=== PATIENT | female | born 1985 | race Caucasian/White ===

== ENCOUNTER → 2019-05-13 | Outpatient (CLI) | payer OTHER ==
--- NOTE | 2019-05-14 13:44 | NM ---
EXAMINATION TYPE: NM thyroid image w uptake DATE OF EXAM: 05/14/2019 COMPARISON: Thyroid aspiration on the right of 03/12/2016. HISTORY: Thyroid nodule. TECHNIQUE: Thyroid iodine uptake is calculated and images performed after the oral administration of 276 uCi 1-123 Capsule. FINDINGS: There is focal uptake within the mid to upper pole of the right thyroid gland mildly suppre ssing the remainder of the gland. The 4 hour iodine uptake is calculated at 9.8% (normal range 8-14% ). The 24-hour iodine uptake is calculated at 24.3% (normal range 15-35%). IMPRESSION: Focal right mid to upper thyroid activity representing an autonomously functioning thyroi d nodule on the right appearing to be the same nodule as biopsied on the fine-needle aspiration of 03/12/2016. Correlate with any recent outside thyroid ultrasounds to assess for additional nodule. The pa tient is noted to be euthyroid.
== END | disposition home or self-care (01) ==
LOC: RADNMMAIN 09:51
PROVIDERS: ATTEND Family Medicine
DX: E04.1 Nontoxic single thyroid nodule (principal)
CPT/HCPCS: 78014; A9516

== ENCOUNTER 2023-09-01 13:54 | Emergency (ER) | payer OTHER ==
[2023-09-01 14:14] VITALS: RESP 18
[2023-09-01] MEDS ORDERED: METOCLOPRAMIDE 10 MG TAB PO STA (14:35)
[2023-09-01] MEDS ORDERED: ACETAMINOPHEN TAB 500 MG TAB PO STA (14:35)
[2023-09-01] MEDS ORDERED: diphenhydrAMINE 25 MG CAP PO STA (14:35)
[2023-09-01] MEDS ORDERED: dexAMETHasone 4 MG TAB PO STA (14:35)
--- NOTE | 2023-09-01 14:55 | ED ---
General Adult HPI - General Chief complaint: Headache Stated complaint: Fell off Horse,hit head Time Seen by Provider: 09/01/23 14:14 Source: patient, RN notes reviewed, old records reviewed Mode of arrival: ambulatory Limitations: no limitations - History of Present Illness Initial comments: Patient is a 38-year-old female who fell off a horse on Saturday. Since that time she has been having headache. States she is also having some neck pain. Denies any sensitivity to lights or sounds, numbness, weakness. Able to ambulate and function with since that time. Patient has had a persistent headache. Only attempted to treat it once with Naprosyn without much improvement. Presents for further evaluation at this time. Denies loss of consciousness when she landed on the ground. States she seemed to have suffered maybe mild whiplash when she landed on her back and shoulder and hip back or have a milligram. No other acute complaints. Is not on thinners. Was not wearing a helmet. Presents multiple days after the injury. - Related Data Home Medications Medication Instructions Recorded Confirmed Control Pills 1 tab PO DAILY 01/15/15 03/12/16 Cholecalciferol (Vitamin D3) 50,000 unit PO WEEKLY 03/07/16 03/12/16 [Vitamin D] buPROPion SR [Wellbutrin Sr] 150 mg PO BID 03/07/16 03/12/16 Allergies Allergy/AdvReac Type Severity Reaction Status Date / Time No Known Allergies Allergy Verified 09/01/23 14:03 Review of Systems ROS Statement: Those systems with pertinent positive or pertinent negative responses have been documented in the HPI. Review of Systems: CONST: Denies fever EYES: Denies blurry vision ENT: Denies nasal congestion C/V: Denies Chest pain RESP: Denies shortness of breath GI: Denies abdominal pain : Denies dysuria SKIN: Denies rash. MSK: Endorses neck pain NEURO: Endorses headache ROS Other: All systems not noted in ROS Statement are negative. Past Medical History Past Medical History: Thyroid Disorder Additional Past Medical History / Comment(s): kidney stones History of Any Multi-Drug Resistant Organisms: None Reported, MRSA Date of last positivie culture/infection: 2 yrs ago under right arm MDRO Source:: under right arm Past Surgical History: Orthopedic Surgery, Tonsillectomy Additional Past Surgical History / Comment(s): Patient's had a D&C and an arthroscopy of the right knee. Past Anesthesia/Blood Transfusion Reactions: No Reported Reaction Past Psychological History: ADD/ADHD, Anxiety Past Alcohol Use History: None Reported Past Drug Use History: None Reported - Past Family History Mother Family Medical History: No Reported History General Exam - General Exam Comments Initial Comments: General: Appears in no acute distress. HEAD: Normal with no signs of head trauma. Negative rodriguez sign. Negative raccoon eyes. EYES: PERRLA, EOMI, conjunctiva normal, no discharge. Pupils are 2-3 mm and equal bilaterally. ENT: Hearing grossly intact, normal oropharynx. RESPIRATORY: Clear breath sounds bilaterally. No wheezes, rales, or rhonchi. C/V: Regular rate and rhythm. S1 and S2 auscultated, peripheral pulses 2+ and intact throughout ABD: Abd is soft, nontender, nondistended EXT: Normal range of motion, no obvious deformity. No significant midline tenderness of the cervical, thoracic, lumbar spine. Patient does have left- sided paraspinal muscle tenderness of the cervical spine. Pelvis is stable. No extremity pain. SKIN: No rashes or lesions observed on exposed skin. NEURO: Alert and oriented x 4. Cranial nerves II-XII intact. No focal sensory or strength deficits. GCS of 15. NIH of 0. Ambulating without issue. Limitations: no limitations Course Vital Signs 09/01/23 14:03 Temperature 97.6 F Pulse Rate 82 Respiratory 18 Rate Blood Pressure 143/91 O2 Sat by Pulse 100 Oximetry Medical Decision Making - Medical Decision Making Was pt. sent in by a medical professional or institution (, PA, GROUP ACCOUNT DIRECTOR, urgent care, hospital, or long-term...) When possible be specific @ -No Did you speak to anyone other than the patient for history (EMS, parent, family, police, friend...)? What history was obtained from this source @ -No Did you review nursing and triage notes (agree or disagree)? Why? @ -I reviewed and agree with nursing and triage notes Were old charts reviewed (outside hosp., previous admission, EMS record, old EKG, old radiological studies, urgent care reports/EKG's, long-term records)? Report findings @ -Old charts reviewed Differential Diagnosis (chest pain, altered mental status, abdominal pain women, abdominal pain men, vaginal bleeding, weakness, fever, dyspnea, syncope, headache, dizziness, GI bleed, back pain, seizure, CVA, palpatations, mental health, musculoskeletal)? @ -Differential Musculoskeletal Muscular strain, contusion, ligament sprain, fracture, arthritis, septic arthritis, bursitis, cellulitis, muscle spasm, nerve compression, DVT, arterial occlusion, herpes zoster, electrolyte abnormality, tumor.... This is not meant to be in all inclusive list. Also includes possible intracranial injury, concussion. EKG interpreted by me (3pts min.). @ -None done X-rays interpreted by me (1pt min.). @ -None done CT interpreted by me (1pt min.). @ -CT brain, C-spine negative for any obvious injury or fracture. No acute intracranial process. U/S interpreted by me (1pt. min.). @ -None done What testing was considered but not performed or refused? (CT, X-rays, U/S, labs)? Why? @ -None What meds were considered but not given or refused? Why? @ -I offered IV migraine cocktail however patient declines. Will be given oral medication instead. Did you discuss the management of the patient with other professionals (professionals i.e. , PA, GROUP ACCOUNT DIRECTOR, lab, RT, psych nurse, manager social services, supervisor concrete stone fabricating, teacher, commercial loan collection officer, supervisor case loading)? Give summary @ -No Was smoking cessation discussed for >3mins.? @ -No Was critical care preformed (if so, how long)? @ -No Were there social determinants of health that impacted care today? How? (Homelessness, low income, unemployed, alcoholism, drug addiction, transportation, low edu. Level, literacy, decrease access to med. care, snf, rehab)? @ -No Was there de-escalation of care discussed even if they declined (Discuss DNR or withdrawal of care, Hospice)? DNR status @ -No What co-morbidities impacted this encounter? (DM, HTN, Smoking, COPD, CAD, Cancer, CVA, ARF, Chemo, Hep., AIDS, mental health diagnosis, sleep apnea, morbid obesity)? @ -None Was patient admitted / discharged? Hospital course, mention meds given and route, prescriptions, significant lab abnormalities, going to OR and other pertinent info. @ -Based on the patient's presentation and physical exam, fall off a horse a few days ago has been having persistent headaches and neck pain since. Presents for imaging. Declines IV access at this time and migraine cocktail medications. She'll be given oral medications for her headache and we will obtain CT of the brain and C-spine. No other obvious injuries. Exams are unremarkable other than pain in the lateral neck. Patient's agreement this plan. Vital signs within acceptable limits. CT imaging negative for any injury. After the patient. Discussion likely has a concussion. Patient is feeling improved. Strict return precautions discussed. She can use [id number] analgesic medications for headache.Discussed with patient that she should obtain a helmet when riding a horse. She expressed understanding and was in agreement with the plan. I instructed the patient to follow up with their PCP in the next 1-3 days. I explained that the patient should return to the emergency department if they experience any worsening symptoms. Strict return precautions were discussed with the patient. The patient expressed understanding of these instructions. I answered all questions that the patient had. The patient was discharged home in good condition with their prescriptions and follow up information. Undiagnosed new problem with uncertain prognosis? @ -No Drug Therapy requiring intensive monitoring for toxicity (Heparin, Nitro, Insulin, Cardizem)? @ -No Were any procedures done? @ -No Diagnosis/symptom? @ -Mild Head injury, concussion, fall off horse, headache Acute, or Chronic, or Acute on Chronic? @ -Acute Uncomplicated (without systemic symptoms) or Complicated (systemic symptoms)? @ -Complicated Side effects of treatment? @ -none Exacerbation, Progression, or Severe Exacerbation] @ -no Poses a threat to life or bodily function? @ -no Disposition Clinical Impression: Fall from horse, Concussion, Minor head trauma, Headache Disposition: HOME SELF-CARE Condition: Good Instructions (If sedation given, give patient instructions): Acute Headache (ED), Concussion (ED) Is patient prescribed a controlled substance at d/c from ED?: No Referrals: Renae Cristobal DO [Primary Care Provider] - 1-2 days Time of Disposition: 15:52
--- NOTE | 2023-09-01 15:37 | CT ---
EXAMINATION TYPE: CT brain cspine wo con CT DLP: 1238.3 mGycm, Automated exposure control for dose reduction was used. DATE OF EXAM: 09/01/2023 3:24 PM COMPARISON: None. CLINICAL INDICATION:Female, 38 years old with history of head pain, after trauma; Fell off horse x 3 days ago. Head and neck pain since. TECHNIQUE: Brain: Multiple axial CT images of the brain were obtained without IV contrast. Cspine: Axial CT images from the skull base to the inferior aspect of T2 we obtained without intraven ous contrast. Coronal and sagittal reformatted images were also reviewed. FINDINGS: Brain: Extra-axial spaces: No abnormal extra-axial fluid collections. Ventricular system: Within normal limits Cerebral parenchyma: No acute intraparenchymal hemorrhage or mass effect. The mercado-white junction is well differentiated. Cerebellum: Unremarkable. Mass effect: No evidence of midline shift. Intracranial vasculature: unremarkable Soft tissues: Within the vessels of the face, may represent phleboliths. Calvarium/osseous structures: No depressed skull fracture. Paranasal sinuses and mastoid air cells: Clear. Visualized orbits: Orbital contents are intact. Cervical spine: Fracture: None. Osseous structures: Unremarkable Vertebral alignment: Within normal limits. Spinal canal/Neural Foramina: No evidence of significant spinal canal narrowing. No evidence for sign ificant neural foraminal stenosis. Neck soft tissues: Prevertebral soft tissues are within normal limits. Other: The airway is patent. The lung apices are clear. IMPRESSION: CT brain- No acute intracranial process. CT cervical spine- No evidence of cervical spine fracture.
[2023-09-01 16:12] VITALS: BP 145/87; PULSE 65; TEMP 97.9
== END 2023-09-01 15:52 | disposition home or self-care (01) ==
LOC: EC 13:54
DX: S06.0X0A Concussion without loss of consciousness, initial encounter (principal); R51.9 Headache, unspecified; F41.9 Anxiety disorder, unspecified; R40.2410 Glasgow coma scale score 13-15, unspecified time; Z79.899 Other long term (current) drug therapy; V80.010A Animal-rider injured by fall from or being thrown from horse in noncollision accident, initial encounter; Y93.52 Activity, horseback riding
CPT/HCPCS: 99284; 72125; 70450; J8540

== ENCOUNTER 2024-05-07 04:36 | Observation (INO) | payer OTHER ==
[2024-05-07] MEDS: HYDROmorphone 1 MG/ML 1 ML SYRINGE IVP STA (05:36)
[2024-05-07] MEDS: ONDANSETRON 4 MG/2 ML VIAL IVP STA (05:43)
[2024-05-07] MEDS: SODIUM CHLORIDE 0.9% 1,000 ML IV STA (05:44)
[2024-05-07 05:57] LABS: Appearance,Urine Clear (Clear); Bilirubin,Urine Negative (Negative); Blood,Urine Negative (Negative); Color,Urine Dark Yellow; Glucose,Urine (UA) Negative (Negative); Hyaline Casts,Urine 3 /lpf (0-2); Ketones,Urine 1+ (Negative); Leukocyte Esterase,Urine Negative (Negative); Mucus,Urine Moderate /hpf; Nitrite,Urine Positive (Negative); PH, Urine 6.5 (5.0-8.0); Protein,Urine Trace (Negative); RBC,Urine 1 /hpf (0-5); Specific Gravity,Urine 1.022 (1.001-1.035); Squamous Epithelial Cell,Urine 1 /hpf (0-4); WBC,Urine 2 /hpf (0-5)
[2024-05-07] MEDS ORDERED: NALOXONE 0.4 MG/ML 1 ML VIAL IV PRN (05:59)
[2024-05-07] MEDS ORDERED: ONDANSETRON 4 MG/2 ML VIAL IVP PRN (05:59)
[2024-05-07] MEDS ORDERED: HYDROmorphone 1 MG/ML 1 ML SYRINGE IVP PRN (05:59)
--- NOTE | 2024-05-07 05:59 | ED ---
General Adult HPI - General Chief complaint: Urogenital Stated complaint: Urogenital Time Seen by Provider: 05/07/24 05:10 Source: patient, RN notes reviewed, old records reviewed Mode of arrival: ambulatory Limitations: no limitations - History of Present Illness Initial comments: Is a 39-year-old female who was transferred from [facility] over concern for intractable flank pain secondary to kidney stone on the left. CT imaging there found an obstructing ureteral lithiasis that is 4 mm in size causing moderate hydronephrosis. Quired multiple doses of pain medications at that facility. It is a stand-alone ER and patient was transferred here for admission for intractable pain. Workup at the outpatient facility otherwise unremarkable. No significant evidence of infection. Was transferred here for admission for pain control. test was negative at the other facility. Patient transferred here via private vehicle. I spoke with the patient, and states that her pain is still very severe. She will be given analgesia medications as well as IV fluids. Patient will be admitted. She was in agreement this plan. - Related Data Home Medications Medication Instructions Recorded Confirmed Control Pills 1 tab PO DAILY 01/15/15 03/12/16 Cholecalciferol (Vitamin D3) 50,000 unit PO WEEKLY 03/07/16 03/12/16 [Vitamin D] buPROPion SR [Wellbutrin Sr] 150 mg PO BID 03/07/16 03/12/16 Allergies Allergy/AdvReac Type Severity Reaction Status Date / Time No Known Allergies Allergy Verified 05/07/24 04:42 Review of Systems ROS Statement: Those systems with pertinent positive or pertinent negative responses have been documented in the HPI. Review of Systems: CONST: Denies fever EYES: Denies blurry vision ENT: Denies nasal congestion C/V: Denies Chest pain RESP: Denies shortness of breath GI: Endorses left flank pain : Denies dysuria SKIN: Denies rash. MSK: Denies joint pain. NEURO: Denies headache ROS Other: All systems not noted in ROS Statement are negative. Past Medical History Past Medical History: Thyroid Disorder Additional Past Medical History / Comment(s): kidney stones History of Any Multi-Drug Resistant Organisms: None Reported, MRSA Date of last positivie culture/infection: 2 yrs ago under right arm MDRO Source:: under right arm Past Surgical History: Orthopedic Surgery, Tonsillectomy Additional Past Surgical History / Comment(s): Patient's had a D&C and an arthroscopy of the right knee. Past Anesthesia/Blood Transfusion Reactions: No Reported Reaction Past Psychological History: ADD/ADHD, Anxiety Past Alcohol Use History: None Reported Past Drug Use History: None Reported - Past Family History Mother Family Medical History: No Reported History General Exam - General Exam Comments Initial Comments: General: Appears in moderate distress . HEAD: Normal with no signs of head trauma. EYES: PERRLA, EOMI, conjunctiva normal, no discharge. ENT: Hearing grossly intact, normal oropharynx. RESPIRATORY: Clear breath sounds bilaterally. No wheezes, rales, or rhonchi. C/V: Regular rate and rhythm. S1 and S2 auscultated, no edema, peripheral pulses 2+ and intact throughout ABD: Abdomen soft, nondistended. Tender palpation in the left flank. No guarding or rebound tenderness. No peritoneal signs. EXT: Normal range of motion, no obvious deformity SKIN: No rashes or lesions observed on exposed skin. NEURO: Alert and oriented x 4. Limitations: no limitations Course Vital Signs 05/07/24 04:40 Temperature 97.6 F Pulse Rate 66 Respiratory 22 Rate Blood Pressure 187/123 O2 Sat by Pulse 99 Oximetry Medical Decision Making - Medical Decision Making Was pt. sent in by a medical professional or institution (, PA, SCREEN PRINTING SUPERVISOR, urgent care, hospital, or penitentiary...) When possible be specific @ -Transferred from [facility] for admission for intractable pain secondary to left ureterolithiasis Did you speak to anyone other than the patient for history (EMS, parent, family, police, friend...)? What history was obtained from this source @ -No Did you review nursing and triage notes (agree or disagree)? Why? @ -I reviewed and agree with nursing and triage notes Were old charts reviewed (outside hosp., previous admission, EMS record, old EKG, old radiological studies, urgent care reports/EKG's, penitentiary records)? Report findings @ -Charts from [facility] reviewed showing no evidence of kidney stone infection. CT result did show 4 mm stone with moderate hydronephrosis on the left. Stone located at the UVJ. Differential Diagnosis (chest pain, altered mental status, abdominal pain women, abdominal pain men, vaginal bleeding, weakness, fever, dyspnea, syncope, headache, dizziness, GI bleed, back pain, seizure, CVA, palpatations, mental health, musculoskeletal)? @ -Intractable pain secondary to kidney stone, electrolyte abnormality, infected kidney stone. This list is not all inclusive. EKG interpreted by me (3pts min.). @ -None done X-rays interpreted by me (1pt min.). @ -None done CT interpreted by me (1pt min.). @ -None done U/S interpreted by me (1pt. min.). @ -None done What testing was considered but not performed or refused? (CT, X-rays, U/S, labs)? Why? @ -Considered CT imaging however patient received this at outside facility. What meds were considered but not given or refused? Why? @ -None Did you discuss the management of the patient with other professionals (professionals i.e. , PA, SCREEN PRINTING SUPERVISOR, lab, RT, psych nurse, elementary school social worker, technical fellow, teacher, transportation security officer, rn field case manager)? Give summary @ -Discussed with on-call Dr. Cain as he was in the department for urology. Would like patient admitted to medicine and he will follow along as a consulting service. Spoke with Dr. Castillo of [facility] the admitting team who accepted the admission. Was smoking cessation discussed for >3mins.? @ -No Was critical care preformed (if so, how long)? @ -No Were there social determinants of health that impacted care today? How? (Homelessness, low income, unemployed, alcoholism, drug addiction, transportation, low edu. Level, literacy, decrease access to med. care, alf, rehab)? @ -No Was there de-escalation of care discussed even if they declined (Discuss DNR or withdrawal of care, Hospice)? DNR status @ -No What co-morbidities impacted this encounter? (DM, HTN, Smoking, COPD, CAD, Cancer, CVA, ARF, Chemo, Hep., AIDS, mental health diagnosis, sleep apnea, morbid obesity)? @ -None Was patient admitted / discharged? Hospital course, mention meds given and route, prescriptions, significant lab abnormalities, going to OR and other pertinent info. @ -Patient presents as a transfer for intractable pain from a left-sided ureterolithiasis. Moderate hydronephrosis on out side CT. Patient will be started on IV fluids, given analgesia medications. Will repeat basic labs. Urology will be consulted. Patient will be admitted to medicine. Dr. Cain of urology was already in the department and requested medicine admission. Vital signs currently within acceptable limits. Patient be symptomatically treated with IV fluids and Dilaudid. I spoke with Dr. Castillo of [facility] who accepted the admission. Undiagnosed new problem with uncertain prognosis? @ -No Drug Therapy requiring intensive monitoring for toxicity (Heparin, Nitro, Insulin, Cardizem)? @ -No Were any procedures done? @ -No Diagnosis/symptom? @ -Intractable abdominal pain secondary to left-sided ureterolithiasis Acute, or Chronic, or Acute on Chronic? @ -Acute Uncomplicated (without systemic symptoms) or Complicated (systemic symptoms)? @ -Complicated Side effects of treatment? @ -No Exacerbation, Progression, or Severe Exacerbation? @ -No Poses a threat to life or bodily function? How? (Chest pain, [place], OR, pneumonia, PE, COPD, DKA, ARF, appy, cholecystitis, CVA, Diverticulitis, Homicidal, Suicidal, threat to staff... and all critical care pts) @ -Yes Disposition Clinical Impression: Intractable abdominal pain, Ureterolithiasis Disposition: ADMITTED IP TO THIS HOSP Condition: Stable Referrals: Renae Cristobal DO [Primary Care Provider] - 1-2 days Time of Disposition: 05:59
[2024-05-07 06:11] LABS: Basophils % (A) 0 %; Eosinophils # (A) 0.1 k/uL (0-0.7); Eosinophils % (A) 1 %; HCT 36.6 % (34.0-46.0); HGB 11.6 gm/dL (11.4-16.0); Lymphocytes % (A) 9 %; MCH 27.6 pg (25.0-35.0); MCHC 31.6 g/dL (31.0-37.0); MCV 87.2 fL (80.0-100.0); Mean Platelet Volume 7.3; Monocytes # (A) 0.5 k/uL (0-1.0); Monocytes % (A) 4 %; Neutrophils # (A) 9.9 k/uL (1.3-7.7); Neutrophils % (A) 86 %; Platelet Count 301 k/uL (150-450); RBC 4.19 m/uL (3.80-5.40); RDW 15.2 % (11.5-15.5); WBC 11.6 k/uL (3.8-10.6)
[2024-05-07 06:55] LABS: ALT 95 U/L (4-34); AST 149 U/L (14-36); African American GFR (CKD) >90 (>60 ml/min/1.73 sqM); Albumin 3.9 g/dL (3.5-5.0); Alkaline Phosphatase 94 U/L (38-126); Anion Gap 5 mmol/L; Blood Urea Nitrogen 9 mg/dL (7-17); Calcium 8.6 mg/dL (8.4-10.2); Carbon Dioxide 25 mmol/L (22-30); Chloride 107 mmol/L (98-107); Glucose 121 mg/dL (74-99); Non-African American GFR(CKD) >90 (>60 ml/min/1.73 sqM); Sodium 137 mmol/L (137-145); Total Bilirubin 0.6 mg/dL (0.2-1.3); Total Protein 6.2 g/dL (6.3-8.2)
[2024-05-07] MEDS: KETOROLAC 15 MG/ML 1 ML VIAL IVP STA (08:56)
--- NOTE | 2024-05-07 08:57 | P.HPIM ---
History of Present Illness Patient is a pleasant 39 years old female with past medical history of kidney stone Was transferred to this facility for flank pain Patient states that she has left flank pain for about 1 week and radiating to the left groin yesterday was more severe so she decided to come to emergency room Also yesterday she started having some dysuria. She denies any fever or chills She denies any other specific complaint diarrhea . No chest pain or dyspnea, Patient also denies weakness or dizziness or headache. She denies smoking alcohol or illicit drugs On admission she is afebrile, blood pressure slightly elevated 141/81 Records from the transferring hospital were reviewed which shows CT scan of the abdomen and pelvis without contrast report:4 mm left ureterovesical junction calculus with moderate left hydronephrosis and perinephric inflammation WBC was 13.1 thousand and urine hCG was negative Review of Systems Review of systems CONSTITUTIONAL: No fever, no malaise, no fatigue. HEENT: No recent visual problems or hearing problems. Denied any sore throat. CARDIOVASCULAR: No orthopnea, PND, no palpitations, no syncope. PULMONARY: No shortness of breath, no cough, no hemoptysis. GASTROINTESTINAL: No diarrhea, no nausea, no vomiting, no abdominal pain. Normoactive bowel sounds. NEUROLOGICAL: No headaches, no weakness, no numbness. HEMATOLOGICAL: Denies any bleeding or petechiae. GENITOURINARY: Denies any burning micturition, frequency, or urgency. MUSCULOSKELETAL/RHEUMATOLOGICAL: Denies any joint pain, swelling, or any muscle pain. ENDOCRINE: Denies any polyuria or polydipsia. Past Medical History Past Medical History: Thyroid Disorder Additional Past Medical History / Comment(s): kidney stones History of Any Multi-Drug Resistant Organisms: None Reported, MRSA Date of last positivie culture/infection: 2 yrs ago under right arm MDRO Source:: under right arm Past Surgical History: Orthopedic Surgery, Tonsillectomy Additional Past Surgical History / Comment(s): Patient's had a D&C and an arthroscopy of the right knee. Past Anesthesia/Blood Transfusion Reactions: No Reported Reaction Past Psychological History: ADD/ADHD, Anxiety Past Alcohol Use History: None Reported Past Drug Use History: None Reported - Past Family History Mother Family Medical History: No Reported History Medications and Allergies Home Medications Medication Instructions Recorded Confirmed Type Control Pills 1 tab PO DAILY 01/15/15 03/12/16 History Cholecalciferol (Vitamin D3) 50,000 unit PO WEEKLY 03/07/16 03/12/16 History [Vitamin D] buPROPion SR [Wellbutrin Sr] 150 mg PO BID 03/07/16 03/12/16 History Allergies Allergy/AdvReac Type Severity Reaction Status Date / Time No Known Allergies Allergy Verified 05/07/24 04:42 Physical Exam Vitals: Vital Signs Temp Pulse Resp BP Pulse Ox 05/07/24 05:50 81 16 141/81 98 05/07/24 04:40 97.6 F 66 22 187/123 99 Intake and Output 05/06/24 05/07/24 05/07/24 22:59 06:59 14:59 Other: Weight 63.503 kg GENERAL: The patient is alert and oriented x3, not in any acute distress. Well developed, well nourished. HEENT: Pupils are round and equally reacting to light. EOMI. No scleral icterus. No conjunctival pallor. Normocephalic, atraumatic. No pharyngeal erythema. No thyromegaly. CARDIOVASCULAR: S1 and S2 present. No murmurs, rubs, or gallops. PULMONARY: Chest is clear to auscultation, no wheezing , no crackles. ABDOMEN: Soft, nontender, nondistended, normoactive bowel sounds. No palpable organomegaly. MUSCULOSKELETAL: No joint swelling or deformity. EXTREMITIES: No cyanosis, clubbing, or pedal edema. NEUROLOGICAL: Gross neurological examination did not reveal any focal deficits. SKIN: No rashes. no petechiae. Results CBC & Chem 7: 05/07/24 05:40 05/07/24 05:40 Labs: Abnormal Lab Results - Last 24 Hours (Table) 05/07/24 05/07/24 05/07/24 Range/Units 05:20 05:40 05:40 WBC 11.6 H (3.8-10.6) k/uL Neutrophils # 9.9 H (1.3-7.7) k/uL Glucose 121 H (74-99) mg/dL AST 149 H (14-36) U/L ALT 95 H (4-34) U/L Total Protein 6.2 L (6.3-8.2) g/dL Urine Protein Trace H (Negative) Urine Ketones 1+ H (Negative) Urine Nitrite Positive H (Negative) Hyaline Casts 3 H (0-2) /lpf Urine Mucus Moderate H (None) /hpf Assessment and Plan Assessment: Renal colic secondary to 4 mm left ureterovesical stone with moderate left hydronephrosis and perinephric inflammation Acute urinary tract infection is suspected Plan: Continue with pain management currently on Toradol Abnormal saline Start ceftriaxone send urine culture Urology consult Labs and medication were reviewed.. Continue same treatment. Continue with symptomatic treatment. Resume home medication. Monitor labs and vitals. DVT and GI prophylaxis. Further recommendations as per clinical course of the patient DVT prophylaxis: Subcutaneous heparin GI Prophylaxis: Pepcid Prognosis is guarded
--- NOTE | 2024-05-07 10:58 | P.GSCN ---
History of Present Illness Consult date: 05/07/24 History of present illness: 39 yo female with a history of stones. She has had left flank pain for a week. She ended up in the er and was transferred to [facility] for further evaluation and pain control She had a ct scan identifying a 4 mm left uvj stone explaining her urinary symptoms. Her wbc were 11k and her urine doesnot look infected. Her pain has been controlled.She thinks she has passed stones before. She has never seen a urologist Review of Systems All systems: negative - Constitutional Denies fever, Denies weight loss - EENT Eyes: denies blurred vision Ears, nose, mouth and throat: Denies dysphagia - Cardiovascular Denies chest pain, Denies shortness of breath - Respiratory Denies cough, Denies 7 - Gastrointestinal Reports as per HPI - Genitourinary Genitourinary: Denies dysuria, Denies hematuria - Integumentary Denies rash, Denies unusual bruising - Neurological Denies headaches, Denies syncope - Hematologic/Lymphatic Denies easy bleeding, Denies easy bruising Past Medical History Past Medical History: Thyroid Disorder Additional Past Medical History / Comment(s): kidney stones History of Any Multi-Drug Resistant Organisms: None Reported, MRSA Year Discovered:: 2 yrs ago under right arm MDRO Source:: under right arm Past Surgical History: Orthopedic Surgery, Tonsillectomy Additional Past Surgical History / Comment(s): Patient's had a D&C and an arthroscopy of the right knee. Past Anesthesia/Blood Transfusion Reactions: No Reported Reaction Past Psychological History: ADD/ADHD, Anxiety Past Alcohol Use History: None Reported Past Drug Use History: None Reported - Past Family History Mother Family Medical History: No Reported History Medications and Allergies Home Medications Medication Instructions Recorded Confirmed Type L.acidoph,Paracasei, B.lactis 1 cap PO DAILY 05/07/24 05/07/24 History [Probiotic] Lisdexamfetamine Dimesylate 60 mg PO DAILY 05/07/24 05/07/24 History [Vyvanse] Sertraline [Zoloft] 200 mg PO HS 05/07/24 05/07/24 History Allergies Allergy/AdvReac Type Severity Reaction Status Date / Time No Known Allergies Allergy Verified 05/07/24 10:11 Surgical - Exam Vital Signs Temp Pulse Resp BP Pulse Ox 97.6 F 66 22 187/123 99 05/07/24 04:40 05/07/24 04:40 05/07/24 04:40 05/07/24 04:40 05/07/24 04:40 Results - Labs 05/07/24 05:40 05/07/24 05:40 Abnormal Lab Results - Last 24 Hours (Table) 05/07/24 05/07/24 05/07/24 Range/Units 05:20 05:40 05:40 WBC 11.6 H (3.8-10.6) k/uL Neutrophils # 9.9 H (1.3-7.7) k/uL Glucose 121 H (74-99) mg/dL AST 149 H (14-36) U/L ALT 95 H (4-34) U/L Total Protein 6.2 L (6.3-8.2) g/dL Urine Protein Trace H (Negative) Urine Ketones 1+ H (Negative) Urine Nitrite Positive H (Negative) Hyaline Casts 3 H (0-2) /lpf Urine Mucus Moderate H (None) /hpf Diabetes panel 05/07/24 Range/Units 05:40 Sodium 137 (137-145) mmol/L Potassium 4.0 (3.5-5.1) mmol/L Chloride 107 (98-107) mmol/L Carbon Dioxide 25 (22-30) mmol/L BUN 9 (7-17) mg/dL Creatinine 0.65 (0.52-1.04) mg/dL Glucose 121 H (74-99) mg/dL Calcium 8.6 (8.4-10.2) mg/dL AST 149 H (14-36) U/L ALT 95 H (4-34) U/L Alkaline Phosphatase 94 (38-126) U/L Total Protein 6.2 L (6.3-8.2) g/dL Albumin 3.9 (3.5-5.0) g/dL Calcium panel 05/07/24 Range/Units 05:40 Calcium 8.6 (8.4-10.2) mg/dL Albumin 3.9 (3.5-5.0) g/dL Pituitary panel 05/07/24 Range/Units 05:40 Sodium 137 (137-145) mmol/L Potassium 4.0 (3.5-5.1) mmol/L Chloride 107 (98-107) mmol/L Carbon Dioxide 25 (22-30) mmol/L BUN 9 (7-17) mg/dL Creatinine 0.65 (0.52-1.04) mg/dL Glucose 121 H (74-99) mg/dL Calcium 8.6 (8.4-10.2) mg/dL Adrenal panel 05/07/24 Range/Units 05:40 Sodium 137 (137-145) mmol/L Potassium 4.0 (3.5-5.1) mmol/L Chloride 107 (98-107) mmol/L Carbon Dioxide 25 (22-30) mmol/L BUN 9 (7-17) mg/dL Creatinine 0.65 (0.52-1.04) mg/dL Glucose 121 H (74-99) mg/dL Calcium 8.6 (8.4-10.2) mg/dL Total Bilirubin 0.6 (0.2-1.3) mg/dL AST 149 H (14-36) U/L ALT 95 H (4-34) U/L Alkaline Phosphatase 94 (38-126) U/L Total Protein 6.2 L (6.3-8.2) g/dL Albumin 3.9 (3.5-5.0) g/dL - Imaging CT scan - abdomen: report reviewed CT scan - pelvis: report reviewed Assessment and Plan Assessment: Impression: Left ureteral stone with colic Recommendations:The patient has been given the option of spontaneous passage versus manipulation. She wants to see how today goes before makin a final decision
[2024-05-07] MEDS: KETOROLAC 15 MG/ML 1 ML VIAL IVP PRN (18:38)
[2024-05-07] MEDS: SERTRALINE 100 MG TAB PO SCH (20:19)
--- NOTE | 2024-05-08 07:16 | P.PN ---
Subjective Progress Note Date: 05/08/24 the patient is in the hospital with a left ureteral calculus with colic.stone is near the bladder. She has had no pain in the last 24 hours since I saw her in the emergency room. Objective - Vital Signs Vital signs: Vital Signs Temp 98.2 F 05/08/24 02:00 Pulse 62 05/08/24 02:00 Resp 16 05/08/24 02:00 BP 134/81 05/08/24 02:00 Pulse Ox 98 05/08/24 02:00 FiO2 Intake & Output 05/07/24 05/08/24 05/08/24 18:59 06:59 18:59 Weight 63.503 kg Other: Voiding Method Toilet # Voids 3 - Labs CBC & Chem 7: 05/07/24 05:40 05/07/24 05:40 Assessment and Plan Assessment: impression: Left ureteral calculus with colic. Recommendations. The patient's pain has disappeared. She's given options of urologic intervention versus spontaneous passage. Should still like to try to pass this at possible. He can be discharged home follow-up in my office in 2 weeks. She understands that if she has significant colic in the interim she should contact her office for further evaluation and/or treatment.
[2024-05-08 08:41] LABS: Basophils # (A) 0.03 X 10*3/uL (0.00-0.10); Basophils % (A) 0.5 %; Eosinophils # (A) 0.21 X 10*3/uL (0.04-0.35); Eosinophils % (A) 3.2 %; HCT 35.3 % (37.2-46.3); HGB 11.1 g/dL (12.0-15.0); Lymphocytes # (A) 2.51 X 10*3/uL (0.90-5.00); MCHC 31.4 g/dL (32.0-37.0); MCV 85.9 FL (80.0-97.0); Mean Platelet Volume 10.3 FL (9.5-12.2); Monocytes # (A) 0.53 X 10*3/uL (0.20-1.00); NRBC Per 100 WBC 0 X 10*3/uL (0.00-0.01); Neutrophils # (A) 3.32 X 10*3/uL (1.80-7.70); Neutrophils % (A) 50.1 %; Platelet Count 301 X 10*3/uL (140-440); RBC 4.11 X 10*6/uL (4.10-5.20); RDW 15.4 % (11.5-14.5); WBC 6.61 X 10*3/uL (4.50-10.00)
[2024-05-08 08:57] LABS: ALT 76 U/L (8-44); AST 65 U/L (13-35); Albumin 3.8 g/dL (3.8-4.9); Alkaline Phosphatase 83 U/L (41-126); BUN/Creat Ratio 11.17 Ratio (12.00-20.00); Blood Urea Nitrogen 6.7 mg/dL (9.0-27.0); Calcium 8.6 mg/dL (8.7-10.3); Carbon Dioxide 25.8 mmol/L (21.6-31.8); Chloride 104 mmol/L (96-109); Globulin 1.9 g/dL (1.6-3.3); Glucose 85 mg/dL (70-110); Sodium 140 mmol/L (135-145); Total Bilirubin 0.4 mg/dL (0.3-1.2); Total Protein 5.7 g/dL (6.2-8.2)
[2024-05-08 13:38] VITALS: BP 146/86; PULSE 73; RESP 18; TEMP 98.5
--- NOTE | 2024-05-12 17:34 | P.DS ---
Providers Date of admission: 05/07/24 05:59 Attending physician: Estuardo Castillo MD Consults: 05/07/24 05:59 Consult Physician Routine Consulting Provider: Nino Cain Consult Reason/Comments: right ureterolithiasis, intractable pain Do you want consulting provider notified?: Already Contacted Primary care physician: Renae Cristobal Va Hospital Course: Diagnoses: Renal colic secondary to 4 mm left ureterovesical stone with moderate left hydronephrosis and perinephric inflammation Acute urinary tract infection is suspected Leukocytosis, resolved Hospital course: Patient is a pleasant 39 years old female with past medical history of kidney stone Was transferred to this facility for flank pain Patient states that she has left flank pain for about 1 week and radiating to the left groin yesterday was more severe so she decided to come to emergency room Also yesterday she started having some dysuria. She denies any fever or chills She denies any other specific complaint diarrhea . No chest pain or dyspnea, Patient also denies weakness or dizziness or headache. She denies smoking alcohol or illicit drugs On admission she is afebrile, blood pressure slightly elevated 141/81 Records from the transferring hospital were reviewed which shows CT scan of the abdomen and pelvis without contrast report:4 mm left ureterovesical junction calculus with moderate left hydronephrosis and perinephric inflammation WBC was 13. Patient was treated with antibiotic and patient evaluated by urologist who cleared her for discharge Patient flank pain significantly improved upon discharge. With no or minimal urinary symptoms Blood culture was negative upon discharge Patient will be discharged on short course of antibiotic of Ceftin Patient agrees to go home today Problems and management plan were discussed with the patient and he verbalized understanding and acceptance Patient was found stable and can be discharged home in guarded prognosis however he needs follow-up as an outpatient. Patient was instructed to follow up with PCP Dr. Cristobal within one week and patient agrees Patient was instructed to follow-up with urologist Dr. Cain in 1 week after discharge and she agrees Physical exam Gen: patient is a AAOx3, no distress CVS: S1-S2, RRR, no murmur Lungs: B/L CTA, no wheezing Abdomen: soft, no distention, no tenderness, positive bowel sounds Extremity: no leg edema or induration Time spent more than 35 minutes Patient Condition at Discharge: Stable Plan - Discharge Summary Discharge Rx Participant: No New Discharge Prescriptions: New cefUROXime axetiL [Ceftin] 500 mg PO BID 3 Days #6 tab Continue Sertraline [Zoloft] 200 mg PO HS L.acidoph,Paracasei, B.lactis [Probiotic] 1 cap PO DAILY Lisdexamfetamine Dimesylate [Vyvanse] 60 mg PO DAILY Discharge Medication List L.acidoph,Paracasei, B.lactis [Probiotic] 1 cap PO DAILY 05/07/24 [History] Lisdexamfetamine Dimesylate [Vyvanse] 60 mg PO DAILY 05/07/24 [History] Sertraline [Zoloft] 200 mg PO HS 05/07/24 [History] cefUROXime axetiL [Ceftin] 500 mg PO BID 3 Days #6 tab 05/08/24 [Rx] Follow up Appointment(s)/Referral(s): Renae Cristobal DO [Primary Care Provider] - 1-2 days (please call for an appointment) Dakotah Heart MD [STAFF PHYSICIAN] - 1 Week (infectious disease doctor if needed ) Nino Cain MD [STAFF PHYSICIAN] - 2 Weeks (please call saturday for an appointment ) Patient Instructions/Handouts: Kidney Stones (GEN) Activity/Diet/Wound Care/Special Instructions: regular diet, encourage oral hydration for 2 weeks activity is restricted till you see your doctor Discharge Disposition: HOME SELF-CARE
== END 2024-05-08 13:40 | disposition home or self-care (01) ==
LOC: EC 04:36 → 6NMEDSUR 05:59
PROVIDERS: ADMIT Internal Medicine; ATTEND Internal Medicine
DX: N13.2 Hydronephrosis with renal and ureteral calculous obstruction (principal); D72.829 Elevated white blood cell count, unspecified; R03.0 Elevated blood-pressure reading, without diagnosis of hypertension; Z79.3 Long term (current) use of hormonal contraceptives; Z79.899 Other long term (current) drug therapy; Z87.442 Personal history of urinary calculi
CPT/HCPCS: 96376; 96361 ×2; 96365; 96375; 99285; 36415; 80053 ×2; 85025 ×2; 81001; 87040; G0378 ×2; J2405; J0696 ×2; J1170; J1885

== ENCOUNTER → 2024-05-13 | Outpatient (CLI) | payer OTHER ==
--- NOTE | 2024-05-21 21:25 | MM ---
Reason for Exam: Screening (asymptomatic). Baseline mammogram. Patient History: Menarche at age 11. First Full-Term at age 21. Last menstrual period: 05/04/2024 Risk Values: Ness 5 year model risk: 0.5%. NCI Lifetime model risk: 9.0%. Prior Study Comparison: Patient's first Mammogram. No prior studies available for comparison. Tissue Density: The breasts are heterogeneously dense, which may obscure small masses. Findings: Analyzed By CAD. No significant mass, suspicious microcalcification, or other discrete abnormality is seen. Overall Assessment: Negative, BI-RAD 1 Management: Screening Mammogram of both breasts in 1 year. . Patient should continue monthly self-breast exams. A clinical breast exam by your physician is recommended on an annual basis. This exam should not preclude additional follow-up of suspicious palpable abnormalities. Note on Ness scores and lifetime risk: 1. A Ness score greater than 3% is considered moderate risk. If this is the case, consider specialist referral to assess eligibility for a risk reducing agent. 2. If overall lifetime risk for the development of breast cancer is 20% or higher, the patient may qualify for future screening with alternating mammogram and breast MRI. Electronically signed and approved by: Heather Blanco M.D. Radiologist
== END | disposition home or self-care (01) ==
LOC: RADMAMWWP 10:35
PROVIDERS: ATTEND Family Medicine
DX: Z12.31 Encounter for screening mammogram for malignant neoplasm of breast (principal); R92.333 Mammographic heterogeneous density, bilateral breasts
CPT/HCPCS: 77067

== ENCOUNTER → 2024-06-02 | Outpatient (CLI) | payer OTHER ==
--- NOTE | 2024-06-02 14:14 | XR ---
EXAMINATION TYPE: XR KUB DATE OF EXAM: 06/02/2024 HISTORY: Pain Comparison: None.Single KUB is submitted for interpretation. Findings: Right renal calculi: None Visualized. Right ureteral calculi: None Visualized. Left renal calculi: None Visualized. Left ureteral calculi: None Visualized. Pelvic calcifications: Multiple pelvic phleboliths seen. Bowel gas pattern is unremarkable. No free air. No mass effects. IMPRESSION: 1. No visible radiopaque calculi seen with certainty.
== END | disposition home or self-care (01) ==
LOC: RADXRMAIN 13:56
PROVIDERS: ATTEND Urology
DX: N20.1 Calculus of ureter (principal)
CPT/HCPCS: 74018

== ENCOUNTER → 2025-06-03 | Outpatient (CLI) | payer OTHER ==
--- NOTE | 2025-06-04 07:50 | MM ---
Reason for Exam: Screening (asymptomatic). Last screening mammogram was performed 12 month(s) ago. Patient History: Menarche at age 11. First Full-Term at age 21. Last menstrual period: 05/27/2025 Risk Values: Ness 5 year model risk: 0.6%. NCI Lifetime model risk: 8.9%. Prior Study Comparison: 05/13/2024 Bilateral MG screening mammo w CAD, [facility]. Tissue Density: The breasts are heterogeneously dense, which may obscure small masses. Findings: Analyzed By CAD. Follow-up of focal asymmetry right breast posterior depth is more defined. This may represent superimposition shadow but further evaluation is recommended. Otherwise, no significant change. Overall Assessment: Incomplete: need additional imaging evaluation, BI-RAD 0 Management: Special View Mammogram of the right breast. [facility] will attempt to contact patient to return for supplemental views and ultrasound if indicated. [facility], , 06/04/2025 7:47 AM. Electronically signed and approved by: Heather Blanco M.D. Radiologist
== END | disposition home or self-care (01) ==
LOC: RADMAMWWP 10:12
PROVIDERS: ATTEND Family Medicine
DX: Z12.31 Encounter for screening mammogram for malignant neoplasm of breast (principal); R92.333 Mammographic heterogeneous density, bilateral breasts
CPT/HCPCS: 77067